=== PATIENT | male | born 1975 | race Caucasian/White ===

== ENCOUNTER → 2016-11-09 | Outpatient (CLI) | payer OTHER ==
[~2016-11-09] MED LIST: ASPI81TA28 PO; CEPH500C PO; DULO60CA44 PO; FURO20TA PO; GABA-113 PO; LEVO125T72 PO; LISI-461 PO; LISI40TA PO; METO-217 PO; OXYC-609 PO; OXYC1TAB3 PO; PROP1TAB PO
[2016-11-09 16:51] LABS: HEMATOCRIT 37.3 % (42-52); MEAN CORPUSCULAR HEMOGLOBIN 28.7 pg (25-34); MEAN CORPUSCULAR HGB CONC 33.8 g/dl (32-36); MEAN PLATELET VOLUME 9.9 fL (7.4-10.4); PLATELET COUNT 314 K/uL (130-400); RED BLOOD COUNT 4.39 M/uL (4.7-6.1); WHITE BLOOD COUNT 9.27 K/uL (4.8-10.8)
[2016-11-09 17:23] LABS: BLOOD UREA NITROGEN 18 mg/dl (7-18); BUN/CREATININE RATIO 18.9 (10-20); CALCIUM 9.2 mg/dl (8.5-10.1); CARBON DIOXIDE 26 mmol/L (21-32); CHLORIDE 103 mmol/L (98-107); CREATININE 0.93 mg/dl (0.60-1.40); GLUCOSE 84 mg/dl (70-99); POTASSIUM 4.3 mmol/L (3.5-5.1); SODIUM 138 mmol/L (136-145)
== END | disposition home or self-care (01) ==
LOC: C.LAB 16:27
PROVIDERS: ATTEND Internal Medicine Infectious Disease
DX: Z51.81 Encounter for therapeutic drug level monitoring (principal); Z79.2 Long term (current) use of antibiotics; B96.5 Pseudomonas (aeruginosa) (mallei) (pseudomallei) as the cause of diseases classified elsewhere; T84.7XXA Infection and inflammatory reaction due to other internal orthopedic prosthetic devices, implants and grafts, initial encounter; T81.4XXA Infection following a procedure, initial encounter; Y83.1 Surgical operation with implant of artificial internal device as the cause of abnormal reaction of the patient, or of later complication, without mention of misadventure at the time of the procedure

== ENCOUNTER → 2016-11-16 | Outpatient (CLI) | payer OTHER ==
[2016-11-16 14:33] LABS: HEMATOCRIT 36.8 % (42-52); MEAN CELL VOLUME 83.8 fL (80-100); MEAN CORPUSCULAR HEMOGLOBIN 28.9 pg (25-34); MEAN CORPUSCULAR HGB CONC 34.5 g/dl (32-36); MEAN PLATELET VOLUME 9.9 fL (7.4-10.4); PLATELET COUNT 277 K/uL (130-400); RED BLOOD COUNT 4.39 M/uL (4.7-6.1); WHITE BLOOD COUNT 6.91 K/uL (4.8-10.8)
[2016-11-16 14:47] LABS: BLOOD UREA NITROGEN 16 mg/dl (7-18); CALCIUM 8.8 mg/dl (8.5-10.1); CARBON DIOXIDE 28 mmol/L (21-32); CHLORIDE 104 mmol/L (98-107); CREATININE 0.89 mg/dl (0.60-1.40); GLUCOSE 132 mg/dl (70-99); POTASSIUM 3.9 mmol/L (3.5-5.1); SODIUM 140 mmol/L (136-145)
== END | disposition home or self-care (01) ==
LOC: C.LABSPEC 13:40
PROVIDERS: ATTEND Internal Medicine Infectious Disease
DX: T84.7XXA Infection and inflammatory reaction due to other internal orthopedic prosthetic devices, implants and grafts, initial encounter (principal); T81.4XXA Infection following a procedure, initial encounter; B96.5 Pseudomonas (aeruginosa) (mallei) (pseudomallei) as the cause of diseases classified elsewhere; Y84.9 Medical procedure, unspecified as the cause of abnormal reaction of the patient, or of later complication, without mention of misadventure at the time of the procedure

== ENCOUNTER → 2016-11-23 | Outpatient (CLI) | payer OTHER ==
[2016-11-23 14:51] LABS: HEMATOCRIT 38.4 % (42-52); MEAN CELL VOLUME 87.5 fL (80-100); MEAN CORPUSCULAR HEMOGLOBIN 28.9 pg (25-34); MEAN CORPUSCULAR HGB CONC 33.1 g/dl (32-36); MEAN PLATELET VOLUME 10.3 fL (7.4-10.4); PLATELET COUNT 222 K/uL (130-400); RED BLOOD COUNT 4.39 M/uL (4.7-6.1); WHITE BLOOD COUNT 6.22 K/uL (4.8-10.8)
[2016-11-23 15:35] LABS: BLOOD UREA NITROGEN 14 mg/dl (7-18); BUN/CREATININE RATIO 18.3 (10-20); CARBON DIOXIDE 25 mmol/L (21-32); CHLORIDE 104 mmol/L (98-107); CREATININE 0.79 mg/dl (0.60-1.40); GLUCOSE 70 mg/dl (70-99); POTASSIUM 4.2 mmol/L (3.5-5.1); SODIUM 138 mmol/L (136-145)
--- NOTE | 2017-01-14 06:54 | CODING QUERY NO DIAGNOSIS ---
Valid Physician Order Needed A valid physician order must be submitted in order to properly bill for the service(s) provided, including date of service(s), valid diagnosis, and physician signature. If these tests are done on a recurring basis the original physician order must be submitted in order to code and bill for the service(s) provided. Please fax us the original, signed physician order so that we may expedite billing to [phone] DOS 11/23/2016 * CBC W/O DIFF * BMP Thank you [facility] Information Management
== END | disposition home or self-care (01) ==
LOC: C.LABSPEC 13:56
PROVIDERS: ATTEND Internal Medicine Infectious Disease
DX: B96.5 Pseudomonas (aeruginosa) (mallei) (pseudomallei) as the cause of diseases classified elsewhere (principal); T84.7XXA Infection and inflammatory reaction due to other internal orthopedic prosthetic devices, implants and grafts, initial encounter; T81.4XXA Infection following a procedure, initial encounter; Y83.1 Surgical operation with implant of artificial internal device as the cause of abnormal reaction of the patient, or of later complication, without mention of misadventure at the time of the procedure

== ENCOUNTER 2017-04-13 05:56 | Emergency (ER) | payer OTHER ==
[~2017-04-13] VITALS: Ht 193 cm; Wt 100.0 kg
[2017-04-13 05:56] VITALS: Ht 193 cm; Wt 100.0 kg
[~2017-04-13 05:56] MED LIST changes: -ASPI81TA28 PO; -CEPH500C PO; -DULO60CA44 PO; -LISI-461 PO; -OXYC1TAB3 PO; -PROP1TAB PO
[2017-04-13] MEDS ORDERED: CEFAZOLIN SOD 1000MG/55 ML D5W IV ONE (06:03)
[2017-04-13] MEDS ORDERED: LISI-461 PO (06:06)
[2017-04-13] MEDS ORDERED: OXYC1TAB3 PO (06:09)
[2017-04-13] MEDS ORDERED: PROP1TAB PO (06:10)
[2017-04-13] MEDS ORDERED: ASPI81TA28 PO (06:10)
[2017-04-13] MEDS ORDERED: DULO60CA44 PO (06:10)
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
[2017-04-13] MEDS ORDERED: CLINDAMYCIN 600 MG/54 ML D5W IV ONE (06:15)
[2017-04-13] MEDS ORDERED: OPTIRAY 320 IV PRN (06:15)
--- NOTE | 2017-04-13 06:26 | DIAGNOSTIC IMAGING REPORT ---
CHEST ONE VIEW PORTABLE CLINICAL HISTORY: cp dyspnea COMPARISON STUDY: 05/26/2016 FINDINGS: The bones soft tissues and hemidiaphragms are normal. The cardiomediastinal silhouette is normal. The lungs are clear. The pulmonary vasculature is normal. IMPRESSION: Negative chest. The above report was generated using voice recognition software. It may contain grammatical, syntax or spelling errors. Electronically signed by: Carroll Dias M.D. 04/13/2017 6:25 AM Dictated Date/Time: 04/13/2017 6:22 AM
[2017-04-13 06:28] LABS: BASO % 0.3 %; BASO ABS # 0.04 K/uL (0-0.2); COMPLETE YES; HEMATOCRIT 42.3 % (42-52); IG% 0.4 %; LYMPH % 26.3 %; LYMPH ABS # 3.22 K/uL (1.2-3.4); MEAN CELL VOLUME 84.6 fL (80-100); MEAN CORPUSCULAR HEMOGLOBIN 26.4 pg (25-34); MEAN CORPUSCULAR HGB CONC 31.2 g/dl (32-36); MEAN PLATELET VOLUME 9.9 fL (7.4-10.4); PLATELET COUNT 275 K/uL (130-400); WHITE BLOOD COUNT 12.26 K/uL (4.8-10.8)
[2017-04-13 06:36] LABS: ISTAT CREATININE 1.1 mg/dl (0.6-1.3); ISTAT HEMOGLOBIN 13.6 g/dl (14.0-18.0); ISTAT IONIZED CALCIUM 1.17 mmol/l (1.12-1.32)
[2017-04-13] MEDS ORDERED: CLINDAMYCIN IV 900 MG in DEXTROSE 5% ADD-VANTAGE 100ML 100 ML IV STA (06:36)
[2017-04-13 06:45] LABS: BUN/CREATININE RATIO 10.1 (10-20); CALCIUM 9.1 mg/dl (8.5-10.1); CREATININE 0.96 mg/dl (0.60-1.40); POTASSIUM 3.6 mmol/L (3.5-5.1)
--- NOTE | 2017-04-13 06:50 | DIAGNOSTIC IMAGING REPORT ---
HEAD WITHOUT CONTRAST (CT) CT DOSE: HISTORY: Pain trauma TECHNIQUE: Multiaxial CT images of the head were performed without the use of intravenous contrast. A dose lowering technique was utilized adhering to the principles of ALARA. Comparison: 04/13/2017 Findings: The paranasal sinuses and mastoid air cells are clear. Interval decompression suboccipital craniotomy. Large low-density regions of the right and to lesser extent left cerebellar left/left occipital region. 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 No acute intracranial hemorrhage. Complex fluid pocket posterior to the suboccipital craniotomy most likely postoperative. Impression: 1. Interval suboccipital decompression craniotomy. 2. 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 3. No acute intracranial abnormality. 4. Complex fluid collection posterior and inferior to the suboccipital craniotomy most likely postoperative. The above report was generated using voice recognition software. It may contain grammatical, syntax or spelling errors. Electronically signed by: Carroll Dias M.D. 04/13/2017 6:48 AM Dictated Date/Time: 04/13/2017 6:43 AM
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
--- NOTE | 2017-04-13 06:54 | DIAGNOSTIC IMAGING REPORT ---
ABD/PELVIS IV CONTRAST ONLY CT DOSE: 4933.84 mGy.cm HISTORY: Trauma. pain TECHNIQUE: Multiaxial CT images of the abdomen and pelvis were performed following the use of intravenous contrast. A dose lowering technique was utilized adhering to the principles of ALARA. COMPARISON STUDY: None. FINDINGS: Lung bases are clear. Liver spleen and pancreas enhance uniformly. Very small hiatal hernia. Linear wound channel extending from the anterior central abdominal wall tube position medially anterior to the medial left rectus. There is no evidence for intra-abdominal extension. Bowel pattern is considered nonobstructive. No evidence for abscess collection or obstruction. Bladder is midline. Moderate degenerative disc changes throughout. Grade 2 anterolisthesis of L4 on L5 probably secondary to posterior spondylolysis. This is considered a nonacute finding. IMPRESSION: 1. Subcutaneous wound channel extending from the skin to the anterior left rectus surface. 2. No evidence for an acute intra-abdominal or intrapelvic abnormality. The above report was generated using voice recognition software. It may contain grammatical, syntax or spelling errors. Electronically signed by: Carroll Dias M.D. 04/13/2017 6:53 AM Dictated Date/Time: 04/13/2017 6:49 AM
--- NOTE | 2017-04-13 06:57 | DIAGNOSTIC IMAGING REPORT ---
(CHEST) THORAX WITH CT DOSE: HISTORY: Trauma pain TECHNIQUE: Multiaxial CT images of the chest were performed following the intravenous administration of contrast. A dose lowering technique was utilized adhering to the principles of ALARA. COMPARISON: None. FINDINGS: The lungs are clear. The mediastinal vascular structures are within normal limits. No mediastinal or hilar lymphadenopathy. No pleural effusion or pneumothorax. Limited views of the upper abdomen demonstrate a normal liver and spleen. IMPRESSION: No significant abnormality identified within the chest. The above report was generated using voice recognition software. It may contain grammatical, syntax or spelling errors. Electronically signed by: Carroll Dias M.D. 04/13/2017 6:56 AM Dictated Date/Time: 04/13/2017 6:53 AM
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
[2017-04-13 07:13] LABS: URINE APPEARANCE CLEAR (CLEAR); URINE BILIRUBIN NEG (NEG); URINE COLOR YELLOW; URINE NITRITE NEG (NEG); URINE PH 5.5 (4.5-7.5); URINE SPECIFIC GRAVITY 1.018 (1.000-1.030); UROBILINOGEN NEG (NEG); ZZUR CULT IF INDIC CLEAN CATCH NO
[2017-04-13 07:17] LABS: MANUAL MICROSCOPIC REQUIRED? NO; REVIEW REQ? NO
[2017-04-13 07:41] LABS: BENZODIAZEPINE, URINE NEG (NEG); COCAINE,URINE NEG (NEG); PHENCYCLIDINE, URINE NEG (NEG)
[2017-04-13 08:00] VITALS: BP 162/93; PULSE 78; O2SAT 98
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
--- NOTE | 2017-06-01 10:26 | EDITING REQUIRED CODING QUERY ---
ABDOMEN LACERATION To promote full compliance with coding requirements relating to patient care, physician participation is requested in all cases of side seam machine operator uncertainty. Please assist us with the question(s) below: *In your suture note, you documented you sutured a scalp laceration, the patient also had an ABDOMEN laceration, did you also suture this laceration & if so, can you please document this & add the length of this laceration ABDOMEN laceration is ( ) cm. Thank you Jeane Reece
--- NOTE | 2017-06-17 08:03 | EDITING REQUIRED CODING QUERY ---
CODING QUERY To promote full compliance with coding requirements relating to patient care, provider participation is requested in all cases of outside repairer special uncertainty. Please assist us with the question(s) below: Coding Question(s): Dr. Alvarado, I am sending this to you in regards to Silvia Clarences report, I need to know if she did a suture repair of the abdomen laceration & if so, can she please document it & it's length, if I put in a query for her to do so it will need a cosigner which would be Dr. Hernandez who was the initial physician on the account so that is why I am sending this to you, he will not be here until Jul.08, would you be able to check with Silvia Lima on this & have her give a response on this, I did also call the ER & spoke to Dr. Lima & she had said there was a note in her mailbox about this but nothing was ever documented in the chart about the suture repair Thank you! Physician's Response(s): Thank you Jeane Reece Principal Diagnosis: "_that condition established after study, to be chiefly responsible for occasioning the admission of the patient to the hospital for care." Co-Existing Principal Diagnosis: "_when two or more diagnoses equally meet the criteria for principal diagnosis as determined by the circumstances of admission, diagnostic work up, and/or therapy provided, and the Alphabetic Index, Tabular List, or another coding guideline does not provide sequencing direction, any one of the diagnoses may be sequenced first." "When the physician has documented what appears to be a current diagnosis in the body of the record, but has not included the diagnosis in the final diagnostic statement, the physician should be asked whether the diagnosis should be added." (Source [facility] 2 QTR90. p3-4)
== END 2017-04-13 08:20 | disposition home or self-care (01) ==
LOC: EDBD 05:56 → C.ED 05:57
DX: S31.112A Laceration without foreign body of abdominal wall, epigastric region without penetration into peritoneal cavity, initial encounter (principal); S09.90XA Unspecified injury of head, initial encounter; X99.1XXA Assault by knife, initial encounter; Y92.009 Unspecified place in unspecified non-institutional (private) residence as the place of occurrence of the external cause; J45.909 Unspecified asthma, uncomplicated; I10 Essential (primary) hypertension; E03.9 Hypothyroidism, unspecified; Z86.14 Personal history of Methicillin resistant Staphylococcus aureus infection; Z82.49 Family history of ischemic heart disease and other diseases of the circulatory system; F17.210 Nicotine dependence, cigarettes, uncomplicated; Z79.82 Long term (current) use of aspirin; Z79.899 Other long term (current) drug therapy

== ENCOUNTER 2017-05-02 12:40 | Emergency (ER) | payer OTHER ==
[~2017-05-02] VITALS: Ht 195.6 cm; Wt 128.0 kg
[~2017-05-02 12:40] MED LIST changes: +ASPI81TA28 PO; +DULO60CA44 PO; +LISI-461 PO; -LISI40TA PO; -METO-217 PO; -OXYC-609 PO; +OXYC1TAB3 PO; +PROP1TAB PO
[2017-05-02 13:09] VITALS: Ht 195.6 cm; Wt 128.0 kg
[2017-05-02] MEDS ORDERED: CEPH500C PO (13:38)
--- NOTE | 2017-05-02 13:40 | EMERGENCY ROOM VISIT NOTE ---
ED Visit Note First contact with patient: 13:16 CHIEF COMPLAINT: Staple removal This patient returns to the ED today for removal of syd that were placed 19 days ago. There has been no swelling, overt redness, or drainage from the wound. The patient feels like the laceration is healing well. He also notes that about 6 days ago he fell onto a table secondary to loss of balance with his history of CVA, and broke a glass slicing the right gluteal region. He notes he has had some serous drainage since then. His tetanus is up-to-date. He denies any pain. REVIEW OF SYSTEMS: Head: No headache, injury or neck pain. Skin: No rash, new lesions, or masses. General: No fever or chills, fatigue, loss of appetite , or significant recent weight gain or loss. PMH: The patient is healthy; there is no significant medical or surgical history. SOCIAL HISTORY: Patient lives at home. PHYSICAL EXAM: Vital Signs: Reviewed Nurse's notes. There is a stable wound on the abdomen with no signs of infection. There is no erythema, swelling, or tenderness. EMERGENCY DEPARTMENT COURSE: The sutures were removed without any difficulty and there was no separation of the wound edges. 7 syd removed. Attention was then turned to the 3 cm in length, by 1 cm with laceration with healthy granulation tissue in the middle on the right gluteal region. Because it is been 6 days, I would not recommend closure. This was thoroughly irrigated with saline, and dressed with a dry abdominal pad. It was secured in place with paper tape. Benefits versus risk of wound closure was discussed with the patient, and he was aware of the risks of closure, therefore it was felt that this should be left open. He is to be taking the Keflex I prescribed him, to help prevent infection, as well as follow with his family doctor for recheck later in the week. He was educated upon worrisome symptoms which to return. He appears stable for outpatient management. In the evaluation and treatment of this patient following differential diagnoses were entertained: Healing laceration, no laceration, inhalation tissue , infection, among others. Problem List Medical Problems: (1) Asthma Status: Chronic (2) Benign hypertension Status: Chronic (3) Hypothyroidism Status: Chronic (4) MRSA Status: Resolved Current/Historical Medications Scheduled Aspirin (Aspirin Ec), 81 MG PO DAILY Cephalexin Monohydrate (Keflex), 500 MG PO TID Duloxetine Hcl (Cymbalta), 60 MG PO DAILY Furosemide (Lasix), 20 MG PO DAILY Gabapentin (Neurontin), 300 MG PO TID Levothyroxine Sodium (Synthroid), 250 MCG PO DAILY Lisinopril (Zestril), 10 MG PO DAILY Propranolol (Inderal), 60 MG PO DAILY Scheduled PRN Oxycodone Ir (Roxicodone Ir), 1 TAB PO Q6 PRN for Pain Allergies Coded Allergies: Penicillins (Verified Allergy, Unknown, CHILDHOOD REACTION, 04/13/17) Vital Signs Date Time Temp Pulse Resp B/P (MAP) Pulse Ox O2 Delivery O2 Flow Rate FiO2 05/02/17 13:09 36.5 73 18 133/86 95 Room Air Departure Information Impression Primary Impression: Removal of syd Additional Impression: Healing laceration Dispostion Home / Self-Care Condition GOOD Prescriptions Cephalexin Monohydrate (Keflex) 500 Mg Cap 500 MG PO TID for 7 Days, #21 CAP Prov: Dwayne Cruz PA-C 05/02/17 Referrals Warren Montiel III, M.D. (PCP) Patient Instructions My [facility] Additional Instructions In regard to the abdominal wound: DISCHARGE INSTRUCTIONS AND TREATMENT: Wash any remaining crusts off of the wound today and resume your normal activities. in regard to the bottom wound: Please keep this area clean, and covered by changing the dressing once daily. Please no ointment to the area. Please be cautious with this, and call your family doctor later today to schedule follow- up later in the week for recheck. Please return with worsening signs of infection to include redness, drainage, swelling or any new/concerning symptoms. You've been prescribed Keflex to help prevent infection with the wound on the bottom. This is one tablet every 8 hours for 7 days. Problem Qualifiers
[2017-05-02 13:52] VITALS: BP 133/86; PULSE 73; TEMP 36.5; O2SAT 95
== END 2017-05-02 13:53 | disposition home or self-care (01) ==
LOC: C.EDB 12:42 → C.EDC 13:53
DX: S31.811D Laceration without foreign body of right buttock, subsequent encounter (principal); W18.30XD Fall on same level, unspecified, subsequent encounter; J45.909 Unspecified asthma, uncomplicated; I10 Essential (primary) hypertension; E03.9 Hypothyroidism, unspecified; Z79.82 Long term (current) use of aspirin; Z86.14 Personal history of Methicillin resistant Staphylococcus aureus infection